=== PATIENT | female | born 1985 | race Caucasian/White ===

== ENCOUNTER 2022-04-24 06:21 | Day surgery (SDC) | payer BC ==
[2022-04-19 10:24] LABS: Hemoglobin 11.3 g/dL (12.0-15.5); Mean Corpuscular HGB CONC 32.5 g/dL (32.0-36.0); Mean Corpuscular Hemoglobin 27.1 pg (27.0-33.0); Mean Corpuscular Volume 83.5 fl (81.6-98.3); Mean Platelet Volume 9.8 fl (7.4-10.4); Platelet Count 339 10x3/uL (150-450); RBC Distribution Width 18.8 % (11.5-14.5); Red Blood Cell (RBC) Count 4.17 10x6/uL (3.90-5.03); White Blood Cell (WBC) Count 6.4 10x3/uL (3.5-10.5)
[2022-04-19 10:32] LABS: BHCG - Serum Negative (NEGATIVE); Pregs Control Background? CLEAR/WHITE (CLR/WHITE); Pregs Control Bar Appear? YES (CONTROL BAR)
[2022-04-20 12:28] VITALS: BMI 40.3
[2022-04-24] MEDS ORDERED: Gabapentin 300 MG CAP ONE (06:36)
[2022-04-24] MEDS ORDERED: Famotidine/PF 20 mg/2ml Vial ONE (06:36)
[2022-04-24] MEDS ORDERED: CeleCOXIB 100 MG CAP ONE (06:37)
[2022-04-24] MEDS ORDERED: Ondansetron PF 4 MG/2 ML Vial ONE (07:06)
[2022-04-24] MEDS ORDERED: Dexamethasone 20 MG/5 ML VIAL ONE (07:06)
[2022-04-24] MEDS ORDERED: Lidocaine 2% PF 5 ML VIAL ONE ×2 (07:06→07:07)
[2022-04-24] MEDS ORDERED: Glycopyrrolate 0.2 MG/ML 5 ML SYRINGE ONE (07:06)
[2022-04-24] MEDS ORDERED: Rocuronium Bromide 10 MG/ML (10ML VIAL) ONE (07:06)
[2022-04-24] MEDS ORDERED: Ketorolac Tromethamine 30 MG/ML VIAL ONE (07:06)
[2022-04-24] MEDS ORDERED: Fentanyl 100 MCG/2 ML VIAL ONE ×2 (07:14→10:30)
[2022-04-24] MEDS ORDERED: PROPOFOL 20 ML ONE (07:14)
[2022-04-24] MEDS ORDERED: Ketamine 50 MG/ML (10ML VIAL) ONE (07:16)
[2022-04-24] MEDS ORDERED: EPINEPHrine 1 MG/ML AMP ONE (07:17)
[2022-04-24] MEDS ORDERED: Bupivacaine PF 0.5% 30 ML VIAL ONE (07:18)
[2022-04-24] MEDS ORDERED: CEFAZOLIN 2 GM VIAL ONE (07:35)
[2022-04-24] MEDS ORDERED: Midazolam HCl 2 mg/2 ml Vial ONE ×2 (07:39→10:45)
[2022-04-24] MEDS ORDERED: PHENYLEPHRINE-NS 100 MCG/ML 10 ML SYRINGE ONE (08:12)
[2022-04-24] MEDS ORDERED: ePHEDrine Sulfate 50 MG/10 ML VIAL ONE (08:38)
[2022-04-24] MEDS ORDERED: Ropivacaine 0.2% 550 ML 550 ML NERVE BLCK SCH (10:30)
[2022-04-24] MEDS ORDERED: traMADol HCl 50 MG TAB ONE (12:38)
== END 2022-04-24 13:30 | disposition home or self-care (01) ==
LOC: CSHSDC 06:21
PROVIDERS: ATTEND Obstetrics & Gynecology
PROC: 0UT94ZZ Resection of Uterus, Percutaneous Endoscopic Approach (ICD-10-PCS; principal; 2022-04-24)
DX: N85.2 Hypertrophy of uterus (principal); N92.0 Excessive and frequent menstruation with regular cycle; N94.6 Dysmenorrhea, unspecified; D64.9 Anemia, unspecified; N73.6 Female pelvic peritoneal adhesions (postinfective); E28.2 Polycystic ovarian syndrome; F41.9 Anxiety disorder, unspecified; F32.A Depression, unspecified; Z79.899 Other long term (current) drug therapy; Z88.5 Allergy status to narcotic agent; Z20.822 Contact with and (suspected) exposure to COVID-19; Z87.891 Personal history of nicotine dependence; Z98.890 Other specified postprocedural states
CPT/HCPCS: 84703; 85027; 86850; 86900; 86901; 87811; 88307; A4306; C1776; J0171; J0690; J1100; J1885; J2001; J2250; J2405; J2704; J2795; J3010; S0020; S0028

== ENCOUNTER 2025-04-09 08:02 | Outpatient (CLI) | payer BC | END 2025-04-09 08:03 | disposition home or self-care (01) | LOC: CSHULT 08:02 | PROVIDERS: ATTEND Family Medicine | DX: E04.1 Nontoxic single thyroid nodule (principal) | CPT/HCPCS: 76536 ==